=== PATIENT | male | born 1945 | race Two or more races ===

== ENCOUNTER 2024-01-23 10:15 | Inpatient (IN) | payer OTHER ==
[~2024-01-23] VITALS: Ht 175.3 cm; Wt 98.9 kg
[2024-01-24] MEDS ORDERED: COZAAR100 MG PO (10:15)
[2024-01-24] MEDS ORDERED: LIPITOR40 M1 PO (10:15)
[2024-01-24] MEDS ORDERED: HYDROCHLOROTHIA25 MG PO (10:15)
[2024-01-24] MEDS ORDERED: TAMS0.4C PO (10:16)
[2024-01-24] MEDS ORDERED: METFORMIN HCL500 M3 PO (10:16)
[2024-01-24] MEDS ORDERED: ADULT LOW DOSE81 M1 PO (10:17)
[2024-01-24] MEDS ORDERED: RAZADYNE ER16 MG PO (10:17)
[2024-01-24] MEDS ORDERED: OXYBUTYNIN CHLOR5 M1 PO (10:17)
[2024-01-24 10:18] LABS: HEMATOCRIT 39.7 % (39.0-48.0); HEMOGLOBIN 13.2 g/dL (13-16.00); MEAN CELL VOLUME 90.3 fL (80.0-100.00); MEAN CORPUSCULAR HEMOGLOBIN 30.2 pg (27.00-32.0); MEAN CORPUSCULAR HGB CONC 33.4 g/dl (32.0-36.0); PLATELET COUNT 334 K/uL (150-450); RED BLOOD COUNT 4.39 M/uL (4.00-6.00); RED CELL DISTRIBUTION WIDTH 14.6 % (11.5-14.5)
[2024-01-24] MEDS ORDERED: NAMENDA1 EACH PO (10:18)
[2024-01-24 10:32] LABS: INR 1.04; PARTIAL THROMBOPLASTIN TIME 29.4 SECONDS (22.0-34.0); PROTHROMBIN TIME 10.9 SECONDS (9.0-11.5)
[2024-01-24 11:09] LABS: CALCIUM 9.6 mg/dL (8.5-10.1); CREATININE SERUM 1.14 mg/dL (0.70-1.30); GFR 62.45; POTASSIUM 4.13 mEq/L (3.5-5.1)
[2024-01-24 12:17] LABS: PH,URINE 5.5 (5.0-8.0); URINE APPEARANCE Clear; URINE BILIRRUBIN Negative (NEGATIVE); URINE BLOOD Large; URINE COLOR Yellow; URINE GLUCOSE Negative (NEGATIVE); URINE KETONE Trace (NEGATIVE); URINE LEUKOCYTE Moderate; URINE NITRATE Negative; URINE PROTEIN Trace (NEGATIVE)
[2024-01-24 12:20] LABS: URINE BACTERIA 40.3 uL (0.0-1933); URINE WBC 716.3 uL (0.0-23.2)
[2024-01-24 12:21] LABS: URINE EPITHELIAL CELLS 1.3 uL (0.0-38.8)
[2024-01-28] MEDS ORDERED: CEFAZOLIN SODIUM 1,000 MG VIAL ONE ×2 (11:56→17:47)
[2024-01-28] MEDS ORDERED: ENOXAPARIN SODIUM 40 MG/0.4 ML SYRINGE SUBCUTANEO ONE (11:56)
[2024-01-28] MEDS ORDERED: BUPIVACAINE HCL/MPF 0.5% 30ML VIAL ONE (13:25)
[2024-01-28] MEDS ORDERED: SURGIFLO APPLICATOR 1 EACH APPL TOP ONE (13:26)
[2024-01-28] MEDS ORDERED: HEMOSTATIC MATRIX 1 KIT KIT TOP ONE (13:26)
[2024-01-28] MEDS ORDERED: OxyCODONE HCL/APAP UD (PERCOCET) PO PRN (16:30)
[2024-01-28] MEDS ORDERED: RINGERS SOLUTION,LACTATED 1,000 ML IV SCH (16:30)
[2024-01-28] MEDS ORDERED: ONDANSETRON HCL 2 MG/ML VIAL IV PRN (16:30)
[2024-01-28] MEDS ORDERED: MORPHINE SULFATE 4 MG/ML CARTRIDGE IV PRN (16:30)
[2024-01-28] MEDS ORDERED: DEXTROSE 50 % IN WATER 0.5 G/ML DISP.SYRIN IV PRN (16:45)
[2024-01-28] MEDS ORDERED: INSULIN LISPRO 1,000 UNIT/10 ML UNITS SUBCUTANEO PRN (16:45)
[2024-01-28] MEDS ORDERED: SUGAMMADEX SODIUM 200 MG/2 ML VIAL IV ONE (16:48)
[2024-01-28] MEDS ORDERED: POLYETHYLENE GLYCOL 3350 17 GM BLIST.PACK PO SCH (17:00)
[2024-01-28] MEDS ORDERED: GABAPENTIN 300 MG CAPSULE PO SCH (17:00)
[2024-01-28] MEDS ORDERED: CEFAZOLIN SODIUM 1,000 MG VIAL IV SCH (18:00)
[2024-01-28] MEDS ORDERED: MORPHINE SULFATE 4 MG/ML VIAL IV ONE ×2 (18:05→18:35)
[2024-01-28] MEDS ORDERED: FAMOTIDINE/PF 20 MG/2 ML VIAL IV SCH (21:00)
[2024-01-29 06:46] LABS: HEMATOCRIT 37.8 % (39.0-48.0); HEMOGLOBIN 12.8 g/dL (13-16.00); MEAN CELL VOLUME 90.5 fL (80.0-100.00); MEAN CORPUSCULAR HEMOGLOBIN 30.6 pg (27.00-32.0); MEAN CORPUSCULAR HGB CONC 33.8 g/dl (32.0-36.0); PLATELET COUNT 296 K/uL (150-450); RED BLOOD COUNT 4.18 M/uL (4.00-6.00); RED CELL DISTRIBUTION WIDTH 14.5 % (11.5-14.5)
[2024-01-29 07:13] LABS: ALBUMIN 3.4 gm/dL (3.4-5.0); CALCIUM 8.7 mg/dL (8.5-10.1); CREATININE SERUM 1.42 mg/dL (0.70-1.30); GFR 48.47; POTASSIUM 4.1 mEq/L (3.5-5.1)
[2024-01-29] MEDS ORDERED: LOSARTAN POTASSIUM 100 MG TABLET PO SCH (09:00)
[2024-01-29] MEDS ORDERED: ENOXAPARIN SODIUM 40 MG/0.4 ML SYRINGE SUBCUTANEO SCH (09:00)
[2024-01-29] MEDS ORDERED: HYDROCHLOROTHIAZIDE 25 MG TABLET PO SCH (09:00)
[2024-01-29] MEDS ORDERED: TAMSULOSIN HCL 0.4 MG CAP PO SCH (09:00)
== END 2024-01-29 11:48 | disposition home or self-care (01) | DRG 658 ==
LOC: O/R 01-28 05:15 → SURH 01-28 09:15 → SURG 01-28 17:31
PROVIDERS: ADMIT Urology; ATTEND Urology
PROC: 0TT14ZG Resection of Left Kidney, Percutaneous Endoscopic Approach, Hand-Assisted (ICD-10-PCS; principal; 2024-01-28 14:45)
DX: C64.2 Malignant neoplasm of left kidney, except renal pelvis (principal); Z20.822 Contact with and (suspected) exposure to COVID-19